=== PATIENT | female | born 1950 | race Caucasian/White ===

== ENCOUNTER → 2017-05-23 | Outpatient (CLI) | payer OTHER ==
[~2017-05-23] MED LIST: CIPROFLOXACIN500 M1 PO; CRESTOR10 MG PO; MOBIC7.5 M1 PO; NORCO 5-325 TA1 EACH PO; PRILOSEC20 MG; VITAMIN D1000 UNI1 PO; [UNRECOGNIZED DRUG - OTHER]
== END ==
LOC: RAD 05-15 11:32
DX: Z12.31 Encounter for screening mammogram for malignant neoplasm of breast (principal)

== ENCOUNTER → 2018-06-26 | Outpatient (CLI) | payer OTHER | LOC: RAD 10:16 | DX: Z12.31 Encounter for screening mammogram for malignant neoplasm of breast (principal) ==

== ENCOUNTER → 2019-09-01 | Outpatient (CLI) | payer OTHER | LOC: BC 10:45 | DX: Z12.31 Encounter for screening mammogram for malignant neoplasm of breast (principal) ==